=== PATIENT | female | born 1995 | race Caucasian/White ===

== ENCOUNTER 2017-01-06 16:14 | Emergency (ER) | payer OTHER ==
[2017-01-06] MEDS ORDERED: NORCO 5/325 PO ONE (18:28)
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
[2017-01-06 20:32] VITALS: BP 114/72
== END 2017-01-06 19:20 | disposition home or self-care (01) ==
LOC: ED 16:14
DX: M54.5 Low back pain (principal); V89.2XXA Person injured in unspecified motor-vehicle accident, traffic, initial encounter; Y93.89 Activity, other specified; Y92.411 Interstate highway as the place of occurrence of the external cause; Y99.8 Other external cause status
CPT/HCPCS: 72100; 99283